=== PATIENT | female | born 1965 | race African-American/Black ===

== ENCOUNTER 2016-07-01 11:12 | Emergency (ER) | payer MEDICAID ==
[~2016-07-01] VITALS: Ht 165.1 cm; Wt 109.0 kg
[~2016-07-01 11:12] MED LIST: CARV12.545 PO; CHLO50TA18 PO; GABA-529 PO; GLIP5TAB25 PO; IBUP-1510 PO; INSU300I SQ; LEVO100T9 PO; LIRA0.6P SQ; LORA10TA7 PO; MECL-109 PO; METF10002 PO; PANT40TA4 PO; PREG75CA PO; ROPI1TAB3 PO; SIMV20TA6 PO; SUCR1TAB PO; TRAZ-132 PO; ZOLP5TAB2 PO
[2016-07-01 11:30] VITALS: BP 136/80
== END 2016-07-01 18:45 | disposition left against medical advice (07) ==
LOC: ER 18:10
DX: R10.9 Unspecified abdominal pain (principal); Z53.21 Procedure and treatment not carried out due to patient leaving prior to being seen by health care provider

== ENCOUNTER 2018-10-09 09:25 | Day surgery (SDC) | payer MEDICAID ==
[~2018-10-09] VITALS: Ht 162.6 cm; Wt 111.1 kg
[~2018-10-09 09:25] MED LIST changes: +ALLO100T PO; +CHLO50TA PO; -CHLO50TA18 PO; +FURO40TA5 PO; -GABA-529 PO; -IBUP-1510 PO; +METF-416 PO; -METF10002 PO; +SERT25TA74 PO; -SUCR1TAB PO; -TRAZ-132 PO; +TRAZ-213 PO
[2018-10-09] MEDS ORDERED: HEPARIN SODIUM 1,000 UNIT/1ML VIAL IV ONE (10:28)
[2018-10-09] MEDS ORDERED: NITROGLYCERIN 50MCG/ML 10ML VIAL (CATH LAB) IV ONE (10:28)
[2018-10-09] MEDS ORDERED: NICARDIPINE 100MCG/ML 10ML VIAL (CATH LAB) IV ONE (10:28)
[2018-10-09 11:35] LABS: HEMATOCRIT 37.3 % (36.0-48.0); HEMOGLOBIN 12.4 g/dL (12.0-16.0); MEAN CORPUSCULAR HEMOGLOBIN 29.4 pg (28.0-32.0); MEAN CORPUSCULAR VOLUME 88.3 fL (81.0-99.0); PLATELET 343 x1000/uL (130-400); RED BLOOD CELL COUNT 4.22 mill/uL (4.2-5.4)
[2018-10-09] MEDS ORDERED: FAMO40TA7 MT (11:48)
[2018-10-09] MEDS ORDERED: ROPI1TAB3 MT (11:48)
[2018-10-09] MEDS ORDERED: DULO30CA51 MT (11:48)
[2018-10-09] MEDS ORDERED: IODIXANOL 320MG/ML 100 ML BOTTLE IV ONE (12:27)
[2018-10-09] MEDS ORDERED: FENTANYL CITRATE/PF 50MCG/ML 2ML VIAL ONE (12:27)
[2018-10-09] MEDS ORDERED: MIDAZOLAM HCL 2 MG/2 ML VIAL ONE (12:27)
[2018-10-09] MEDS ORDERED: LIDOCAINE HCL 1% 20ML VIAL (Pyxis) INJ ONE (12:28)
[2018-10-09] MEDS ORDERED: ONDANSETRON HCL 4MG/2ML INJ IV PRN (13:30)
[2018-10-09] MEDS ORDERED: ACETAMINOPHEN 325MG TABLET PO PRN (13:30)
[2018-10-09] MEDS ORDERED: ACETAMINOPHEN 325MG TABLET ONE (15:19)
== END 2018-10-09 17:23 | disposition home or self-care (01) ==
LOC: CCL 09:25
PROVIDERS: ATTEND Internal Medicine Cardiovascular Disease
DX: R07.89 Other chest pain (principal); Z88.5 Allergy status to narcotic agent; Z79.899 Other long term (current) drug therapy; Z79.4 Long term (current) use of insulin; Z82.49 Family history of ischemic heart disease and other diseases of the circulatory system; Z80.8 Family history of malignant neoplasm of other organs or systems
CPT/HCPCS: 36415; 80048; 82962; 85027; 93005; 93458; C1769; C1887; C1893; J1644; J2250; J3010; J3490; Q9967

== ENCOUNTER 2019-04-09 12:24 | Inpatient (IN) | payer MEDICAID ==
[~2019-04-09] VITALS: Ht 162.6 cm; Wt 113.4 kg
[~2019-04-09 12:24] MED LIST changes: +DULO30CA52 MT; +FAMO40TA7 MT; -MECL-109 PO; -METF-416 PO; -PANT40TA4 PO; +ROPI1TAB3 MT; -SERT25TA74 PO; +SIMV-43 PO; -SIMV20TA6 PO; -TRAZ-213 PO; -ZOLP5TAB2 PO
[2019-04-09] MEDS ORDERED: ONDANSETRON HCL 4MG/2ML INJ IV STA (15:18)
[2019-04-09] MEDS ORDERED: FAMOTIDINE 20MG/2ML VIAL IV STA (15:18)
[2019-04-09] MEDS ORDERED: SODIUM CHLORIDE 0.9% 1,000 ML IV ONE (15:18)
[2019-04-09 16:09] LABS: CLARITY URINE CLOUDY (CLEAR); COLOR URINE YELLOW (YELLOW); KETONES URINE TRACE (NEGATIVE); LEUKOCYTE ESTERASE URINE 2+ (NEGATIVE); NITRITE URINE NEGATIVE (NEGATIVE); OCCULT BLOOD URINE NEGATIVE (NEGATIVE); PH URINE 5.5 (4.5-8.0); PROTEIN URINE 2+ (NEGATIVE); SPECIFIC GRAVITY URINE 1.019 (1.005-1.030); UROBILINOGEN URINE 0.2 E.U./dL (0.2-1.0)
[2019-04-09] MEDS ORDERED: MORPHINE SULFATE 4 MG/ML CPJ (NOT FOR IM USE) IV STA (16:10)
[2019-04-09 16:34] LABS: BASOPHILS % 0.8 % (0.0-2.0); EOSINOPHILS % 0.1 % (0.0-5.0); HEMATOCRIT. 46.7 % (36.0-48.0); HEMOGLOBIN. 15.8 g/dL (12.0-16.0); LYMPHOCYTES % 16.6 % (20.0-50.0); MEAN CORPUSCULAR HEMOGLOBIN 29.2 pg (28.0-32.0); MEAN CORPUSCULAR VOLUME 86.3 fL (81.0-99.0); MEAN PLATELET VOLUME 9.7 fl (7.4-10.4); MONOCYTES % 9.5 % (2.0-8.0); PLATELET 368 x1000/uL (130-400); RED BLOOD CELL COUNT 5.41 mill/uL (4.2-5.4); RED CELL DISTRIBUTION WIDTH 14.9 % (11.6-14.6)
[2019-04-09 16:38] LABS: CHLORIDE 102 mEq/L (98-107)
[2019-04-09 16:53] LABS: INR 1.1; PROTHROMBIN TIME 11.6 sec (9.6-11.0)
[2019-04-09] MEDS ORDERED: LEVOFLOXACIN 500MG TABLET PO ONE (17:00)
[2019-04-09] MEDS ORDERED: GUAIFENESIN 200MG/10ML SUGAR FREE UDC PO PRN (20:45)
[2019-04-09] MEDS ORDERED: IPRATROPIUM/ALBUTEROL 0.5-3(2.5)MG/3ML NEB NEB PRN (20:45)
[2019-04-09] MEDS ORDERED: DIPHENHYDRAMINE 50MG/ML VIAL IV PRN (20:45)
[2019-04-09] MEDS ORDERED: MAGNESIUM/ALUMINUM HYDROXIDE/SIMETHICONE 30ML UDC PO PRN (20:45)
[2019-04-09] MEDS ORDERED: NA PHOS,M-B/NA PHOS,DI-BA ENEMA 118ML PR PRN (20:45)
[2019-04-09] MEDS ORDERED: DOCUSATE SODIUM 100MG CAPSULE PO PRN (20:45)
[2019-04-09] MEDS ORDERED: CLONIDINE 0.1MG TABLET PO PRN (20:45)
[2019-04-09] MEDS ORDERED: LORAZEPAM 0.5MG TABLET PO PRN (20:45)
[2019-04-09 21:10] VITALS: BP 155/102
[2019-04-09] MEDS ORDERED: DEXTROSE 50% WATER 50ML SYRINGE IV PRN (22:00)
[2019-04-09] MEDS ORDERED: METRONIDAZOLE 500 MG PREMIX 100 ML IV SCH (22:00)
[2019-04-09 22:13] VITALS: BP 155/102
[2019-04-09] MEDS: MORPHINE SULFATE 2 MG/ML CPJ (NOT FOR IM USE) IV PRN (22:31)
[2019-04-09] MEDS: SODIUM CHLORIDE 0.45% 1,000 ML IV SCH (22:34)
[2019-04-09] MEDS: BLOOD SUGAR DIAGNOSTIC STRIP TEST SCH (22:45)
[2019-04-09] MEDS: INSULIN LISPRO 100 UNITS/ML SUBCUT SCH (22:45)
[2019-04-09] MEDS ORDERED: ERGO2000 PO (23:34)
[2019-04-09] MEDS ORDERED: CALC-3 MT (23:34)
[2019-04-09] MEDS ORDERED: SEMA1PEN SQ (23:34)
[2019-04-10] VITALS: BP 134/74
[2019-04-10] MEDS: METRONIDAZOLE 500 MG PREMIX 100 ML IV SCH ×4 (00:07→22:03)
[2019-04-10 04:00] VITALS: BP 135/84
[2019-04-10] MEDS: MORPHINE SULFATE 2 MG/ML CPJ (NOT FOR IM USE) IV PRN ×2 (05:42→11:28)
[2019-04-10] MEDS: BLOOD SUGAR DIAGNOSTIC STRIP TEST SCH ×4 (06:10→21:00)
[2019-04-10 08:00] VITALS: BP 131/76
[2019-04-10 08:04] LABS: BASOPHILS % 0.6 % (0.0-2.0); EOSINOPHILS % 0.1 % (0.0-5.0); HEMOGLOBIN. 13.6 g/dL (12.0-16.0); MEAN CORPUSCULAR HEMOGLOBIN 28.8 pg (28.0-32.0); MEAN CORPUSCULAR VOLUME 86.6 fL (81.0-99.0); MEAN PLATELET VOLUME 9.7 fl (7.4-10.4); MONOCYTES % 12.1 % (2.0-8.0); NEUTROPHILS % 70.2 % (40.0-76.0); PLATELET 307 x1000/uL (130-400); RED BLOOD CELL COUNT 4.73 mill/uL (4.2-5.4); RED CELL DISTRIBUTION WIDTH 14.8 % (11.6-14.6)
[2019-04-10] MEDS: ENOXAPARIN 30MG/0.3ML SYR SUBCUT SCH ×2 (08:25→21:20)
[2019-04-10 08:28] LABS: CHLORIDE 104 mEq/L (98-107)
[2019-04-10] MEDS: INSULIN LISPRO 100 UNITS/ML SUBCUT SCH ×4 (08:32→22:00)
[2019-04-10 08:41] LABS: LDL CHOLESTEROL 88 mg/dL (5-100)
[2019-04-10 08:42] LABS: HDL CHOLESTEROL 30 mg/dL (40-59); T4 FREE 1.24 ng/dL (0.76-1.46)
[2019-04-10] MEDS ORDERED: POTASSIUM CHLORIDE 20MEQ TABLET SR PO SCH (11:00)
[2019-04-10] MEDS: SODIUM CHLORIDE 0.45% 1,000 ML IV SCH (11:29)
[2019-04-10 12:00] VITALS: BP 141/79
[2019-04-10] MEDS: LEVOFLOXACIN 250MG PREMIX 50 ML IV SCH (13:38)
[2019-04-10 16:00] VITALS: BP 135/77
[2019-04-10] MEDS ORDERED: LEVOFLOXACIN 250MG PREMIX 50 ML IV SCH (17:00)
[2019-04-10] MEDS: ONDANSETRON HCL 4MG/2ML INJ IV PRN (18:55)
[2019-04-10 20:00] VITALS: BP 141/82
[2019-04-10] MEDS: FAMOTIDINE 20MG TABLET PO SCH (21:19)
[2019-04-11] VITALS: BP 139/80
[2019-04-11 04:00] VITALS: BP 132/77
[2019-04-11] MEDS: SODIUM CHLORIDE 0.45% 1,000 ML IV SCH ×2 (06:10→15:10)
[2019-04-11] MEDS: METRONIDAZOLE 500 MG PREMIX 100 ML IV SCH ×3 (06:10→21:24)
[2019-04-11] MEDS: BLOOD SUGAR DIAGNOSTIC STRIP TEST SCH ×4 (06:27→20:27)
[2019-04-11 06:55] LABS: BASOPHILS % 0.5 % (0.0-2.0); EOSINOPHILS % 0.1 % (0.0-5.0); HEMATOCRIT. 40.6 % (36.0-48.0); HEMOGLOBIN. 13.2 g/dL (12.0-16.0); LYMPHOCYTES % 18.6 % (20.0-50.0); MEAN CORPUSCULAR HEMOGLOBIN 28.6 pg (28.0-32.0); MEAN CORPUSCULAR VOLUME 87.9 fL (81.0-99.0); MEAN PLATELET VOLUME 9.7 fl (7.4-10.4); MONOCYTES % 10.2 % (2.0-8.0); NEUTROPHILS % 70.6 % (40.0-76.0); PLATELET 290 x1000/uL (130-400); RED BLOOD CELL COUNT 4.62 mill/uL (4.2-5.4); RED CELL DISTRIBUTION WIDTH 14.7 % (11.6-14.6)
[2019-04-11 08:00] VITALS: BP 122/76
[2019-04-11] MEDS: ENOXAPARIN 30MG/0.3ML SYR SUBCUT SCH ×2 (08:46→20:29)
[2019-04-11] MEDS: INSULIN LISPRO 100 UNITS/ML SUBCUT SCH ×4 (08:46→21:01)
[2019-04-11] MEDS ORDERED: POTASSIUM CHLORIDE 20MEQ TABLET SR PO SCH (10:30)
[2019-04-11 12:00] VITALS: BP 137/87
[2019-04-11] MEDS: LEVOFLOXACIN 250MG PREMIX 50 ML IV SCH (14:41)
[2019-04-11 16:00] VITALS: BP 117/67
[2019-04-11] MEDS: ONDANSETRON HCL 4MG/2ML INJ IV PRN (16:47)
[2019-04-11] MEDS ORDERED: BISACODYL 5MG TABLET PO ONE (18:30)
[2019-04-11] MEDS: DOCUSATE SODIUM 250MG CAPSULE PO SCH (18:38)
[2019-04-11 20:00] VITALS: BP 135/71
[2019-04-11] MEDS: FAMOTIDINE 20MG TABLET PO SCH (20:28)
[2019-04-12] VITALS: BP 131/77
[2019-04-12] MEDS: ONDANSETRON HCL 4MG/2ML INJ IV PRN (03:24)
[2019-04-12] MEDS: SODIUM CHLORIDE 0.45% 1,000 ML IV SCH (03:27)
[2019-04-12 04:00] VITALS: BP 129/63
[2019-04-12] MEDS: METRONIDAZOLE 500 MG PREMIX 100 ML IV SCH ×2 (05:59→12:56)
[2019-04-12] MEDS: BLOOD SUGAR DIAGNOSTIC STRIP TEST SCH ×2 (06:47→11:46)
[2019-04-12 07:20] LABS: BASOPHILS % 0.6 % (0.0-2.0); EOSINOPHILS % 0.5 % (0.0-5.0); HEMOGLOBIN. 12.7 g/dL (12.0-16.0); LYMPHOCYTES % 21.5 % (20.0-50.0); MEAN CORPUSCULAR HEMOGLOBIN 29.3 pg (28.0-32.0); MEAN CORPUSCULAR VOLUME 87.8 fL (81.0-99.0); MEAN PLATELET VOLUME 9.8 fl (7.4-10.4); MONOCYTES % 10.4 % (2.0-8.0); PLATELET 250 x1000/uL (130-400); RED BLOOD CELL COUNT 4.33 mill/uL (4.2-5.4); RED CELL DISTRIBUTION WIDTH 14.8 % (11.6-14.6)
[2019-04-12 08:00] VITALS: BP 115/65
[2019-04-12] MEDS: ENOXAPARIN 30MG/0.3ML SYR SUBCUT SCH (08:24)
[2019-04-12] MEDS: DOCUSATE SODIUM 250MG CAPSULE PO SCH (08:24)
[2019-04-12] MEDS: INSULIN LISPRO 100 UNITS/ML SUBCUT SCH ×2 (08:36→12:03)
[2019-04-12] MEDS ORDERED: MULTIVITAMINS,THER W-MINERALS TABLET PO SCH (09:00)
[2019-04-12 09:40] VITALS: BP 131/83
[2019-04-12 12:00] VITALS: BP 125/65
[2019-04-12] MEDS: LEVOFLOXACIN 250MG PREMIX 50 ML IV SCH (12:57)
[2019-04-12 16:00] VITALS: BP 133/65
== END 2019-04-12 16:03 | disposition home or self-care (01) | DRG 720 ==
LOC: ER 12:24 → EDBEDREQ 18:44 → EDBEDREQTM 18:44 → 6EST 19:00 → ENRESERV 19:34
PROVIDERS: ADMIT Internal Medicine; ATTEND Internal Medicine
DX: A41.9 Sepsis, unspecified organism (principal); N17.0 Acute kidney failure with tubular necrosis; I50.9 Heart failure, unspecified; I11.0 Hypertensive heart disease with heart failure; E03.9 Hypothyroidism, unspecified; E66.9 Obesity, unspecified; E87.6 Hypokalemia; K29.70 Gastritis, unspecified, without bleeding; E86.0 Dehydration; N39.0 Urinary tract infection, site not specified; E11.9 Type 2 diabetes mellitus without complications; I25.10 Atherosclerotic heart disease of native coronary artery without angina pectoris; Z96.652 Presence of left artificial knee joint; K21.9 Gastro-esophageal reflux disease without esophagitis; K52.9 Noninfective gastroenteritis and colitis, unspecified; K59.00 Constipation, unspecified; K76.0 Fatty (change of) liver, not elsewhere classified; M19.90 Unspecified osteoarthritis, unspecified site; M79.7 Fibromyalgia; Z79.4 Long term (current) use of insulin; Z79.899 Other long term (current) drug therapy; Z90.49 Acquired absence of other specified parts of digestive tract; Z88.8 Allergy status to other drugs, medicaments and biological substances; Z98.51 Tubal ligation status; Z68.41 Body mass index [BMI] 40.0-44.9, adult; Z71.3 Dietary counseling and surveillance
CPT/HCPCS: 36415; 71045; 74176; 80048; 80053; 80061; 81003; 82962; 83605; 84439; 84443; 84484; 85025; 93005; 96361; 96374; 96375; 99285; J1650; J1815; J1956; J2270; J2405; J3490; J7030

== ENCOUNTER 2024-08-18 08:17 | Emergency (ER) | payer MEDICAID ==
[~2024-08-18] VITALS: Ht 162.6 cm; Wt 86.0 kg
[~2024-08-18 08:17] MED LIST changes: +ATOR40TA70 MT; +CALC-3 MT; -CHLO50TA PO; +EMPA10TA MT; +ERGO2000 PO; -GLIP5TAB25 PO; +INSLIS SUBCUT; -INSU300I SQ; +LANTUSUD SUBCUT; -LIRA0.6P SQ; +METF500T PO; +NITR0.4T49 SL; -ROPI1TAB3 MT; -ROPI1TAB3 PO; +SEMA1PEN SQ; -SIMV-43 PO
[2024-08-18 08:18] VITALS: O2SAT 100
[2024-08-18] MEDS: HYDROCODONE/ACETAMINOPHEN 5/325MG TABLET PO ONE (08:39)
[2024-08-18] MEDS: ONDANSETRON 4MG ODT PO ONE (08:40)
[2024-08-18 10:15] LABS: POTASSIUM 4.1 mEq/L (3.5-5.1)
[2024-08-18 10:16] LABS: CALCIUM 8.9 mg/dL (8.7-10.4)
[2024-08-18 10:18] LABS: PROTHROMBIN TIME 10.8 sec (9.6-11.0)
[2024-08-18 10:19] LABS: BASOPHILS % 0.6 % (0.0-2.0); EOSINOPHILS % 2.9 % (0.0-5.0); HEMATOCRIT. 39.7 % (36.0-48.0); HEMOGLOBIN. 13.3 g/dL (12.0-16.0); LYMPHOCYTES % 31.9 % (20.0-50.0); MEAN CORPUSCULAR HEMOGLOBIN 29.3 pg (28.0-32.0); MEAN CORPUSCULAR HGB CONC 33.4 g/dL (31.0-37.0); MEAN CORPUSCULAR VOLUME 87.8 fL (81.0-99.0); MEAN PLATELET VOLUME 9.5 fl (7.4-10.4); MONOCYTES % 7.9 % (2.0-8.0); NEUTROPHILS % 56.7 % (40.0-76.0); PLATELET 224 x1000/uL (130-400); RED BLOOD CELL COUNT 4.52 mill/uL (4.2-5.4); RED CELL DISTRIBUTION WIDTH 15.2 % (11.6-14.6); WHITE BLOOD COUNT 8.2 x1000/uL (4.5-11.0)
[2024-08-18] MEDS: SODIUM CHLORIDE 0.9% 1,000 ML IV ONE (10:20)
[2024-08-18 10:21] LABS: CREATININE 1.9 mg/dL (0.6-1.0)
[2024-08-18] MEDS: ONDANSETRON HCL 4MG/2ML INJ IV STA ×2 (11:06→15:13)
[2024-08-18] MEDS: MORPHINE SULFATE 4 MG/ML INJ (FOR IV/IM USE) IV STA ×2 (11:06→15:13)
[2024-08-18] MEDS: MORPHINE SULFATE 4 MG/ML INJ (FOR IV/IM USE) IV ONE (15:46)
[2024-08-18 18:31] VITALS: BP 105/67; PULSE 93; RESP 18; TEMP 36.7; O2SAT 96
[2024-08-18 18:31] LABS: CLARITY URINE CLEAR (CLEAR); COLOR URINE YELLOW (YELLOW); GLUCOSE URINE 3+ (NEGATIVE); KETONES URINE NEGATIVE (NEGATIVE); LEUKOCYTE ESTERASE URINE NEGATIVE (NEGATIVE); NITRITE URINE NEGATIVE (NEGATIVE); OCCULT BLOOD URINE NEGATIVE (NEGATIVE); PH URINE 6.5 (4.5-8.0); PROTEIN URINE NEGATIVE (NEGATIVE); SPECIFIC GRAVITY URINE 1.019 (1.005-1.030)
[2024-08-18 18:42] LABS: BACTERIA URINE TRACE; RBC URINE NONE SEEN /hpf (0-2); SQUAMOUS EPITHELIAL CELL URINE RARE /lpf (RARE/1+); WBC URINE 0-2 /hpf (0-2)
== END 2024-08-18 18:50 | disposition short-term general hospital (02) ==
LOC: ER 08:17
DX: S82.102A Unspecified fracture of upper end of left tibia, initial encounter for closed fracture (principal); S89.92XA Unspecified injury of left lower leg, initial encounter; S99.912A Unspecified injury of left ankle, initial encounter; S89.91XA Unspecified injury of right lower leg, initial encounter; E11.9 Type 2 diabetes mellitus without complications; I11.0 Hypertensive heart disease with heart failure; I50.9 Heart failure, unspecified; E03.9 Hypothyroidism, unspecified; Z79.899 Other long term (current) drug therapy; Z96.652 Presence of left artificial knee joint; Z79.84 Long term (current) use of oral hypoglycemic drugs; Z88.5 Allergy status to narcotic agent; M79.7 Fibromyalgia; W10.9XXA Fall (on) (from) unspecified stairs and steps, initial encounter; Y93.K1 Activity, walking an animal; Y92.89 Other specified places as the place of occurrence of the external cause; Y99.8 Other external cause status
CPT/HCPCS: 80048; 81003; 82962; 85025; 85610; 36415; 72170; 73130; 73560; 73590; 73600; 93005; 29505; 96361; 96374; 96375; 96376; 99285; Q0162; J2405; J2270; J7030; Z7610 ×2; A4606